=== PATIENT | male | born 1990 | race Caucasian/White ===

== ENCOUNTER 2024-08-18 22:42 | Emergency (ER) | payer OTHER, SELFPAY ==
[2024-08-18 22:44] VITALS: BP 120/72
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
[2024-08-18] MEDS: MOTRIN 800 MG PO (23:34)
[2024-08-19 00:14] VITALS: BP 116/73
[2024-08-19 00:29] VITALS: BP 116/75
[2024-08-19 01:00] VITALS: BP 117/81
== END 2024-08-19 01:49 | disposition home or self-care (01) ==
LOC: EMR 22:42
PROVIDERS: EMERGENCY PHYSICIAN Emergency Medicine; FAMILY PHYSICIAN Family Medicine
DX: S01.111A Laceration without foreign body of right eyelid and periocular area, initial encounter (principal); S05.11XA Contusion of eyeball and orbital tissues, right eye, initial encounter; S80.02XA Contusion of left knee, initial encounter; S60.221A Contusion of right hand, initial encounter; V28.01XA Electric (assisted) bicycle driver injured in noncollision transport accident in nontraffic accident, initial encounter
CPT/HCPCS: 12011; 99284; 70150; 70200; 73564